=== PATIENT | female | born 1980 | race Caucasian/White ===

== ENCOUNTER 2018-11-05 18:43 | Emergency (ER) | payer MEDICAID ==
[~2018-11-05] VITALS: Ht 157.5 cm; Wt 68.9 kg
[~2018-11-05 18:43] MED LIST: BENA20TA PO; PHEN100C4 PO
[2018-11-05 19:24] VITALS: BP 144/101
[2018-11-05] MEDS ORDERED: MORPHINE SULFATE 4 MG/ML SYR IVP ONE (20:35)
[2018-11-05] MEDS ORDERED: ONDANSETRON 4 MG/2 ML VIAL IVP ONE (20:35)
[2018-11-05] MEDS ORDERED: NACL 0.9% 1,000 ML IV ONE (20:35)
[2018-11-05 20:51] LABS: BASOPHILS % (AUTO) 0.2 % (0.0-2.0); EOSINOPHILS # (AUTO) 0.1 K/uL (0-0.4); EOSINOPHILS % (AUTO) 0.9 % (0.0-4.0); HEMATOCRIT 37.8 % (36-48); HEMOGLOBIN 12.5 g/dL (12.0-16.0); LYMPHOCYTES # (AUTO) 1.7 K/uL (2.5-16.5); LYMPHOCYTES % (AUTO) 13.3 % (20.5-51.1); MEAN CORPUSCULAR HEMOGLOBIN 28 pg (27-31); MEAN CORPUSCULAR HGB CONC 33 g/dL (33-37); MEAN CORPUSCULAR VOLUME 84.7 fL (80-94); MONOCYTES # (AUTO) 0.6 K/uL (0.8-1.0); MONOCYTES % (AUTO) 4.5 % (1.7-9.3); NEUTROPHILS # (AUTO) 10.1 K/uL (1.8-7.7); NEUTROPHILS % (AUTO) 81.1 % (42.2-75.2); PLATELET COUNT (AUTO) 224 K/uL (140-450); RED BLOOD CELL COUNT(AUTO) 4.47 MIL/uL (4.20-5.40); RED CELL DISTRIBUTION WIDTH 14.7 % (11.6-13.7); WHITE BLOOD COUNT (AUTO) 12.5 K/uL (4.8-10.8)
[2018-11-05 21:19] LABS: POTASSIUM 3.7 mmol/L (3.5-5.1)
[2018-11-05 21:20] LABS: ALBUMIN 3.6 g/dL (3.4-5.0); ANION GAP 11.6 (8-16); CARBON DIOXIDE 26.1 mmol/L (21-32); CREATININE 1.2 mg/dL (0.6-1.3); TOTAL BILIRUBIN 0.4 mg/dL (0.0-1.0)
[2018-11-05] MEDS ORDERED: fentaNYL 0.05 MG/ML VIAL IVP ONE (23:00)
[2018-11-06 00:52] LABS: APPEARANCE,URINE CLEAR (CLEAR); BILIRUBIN,URINE NEGATIVE (NEGATIVE); BLOOD, URINE TRACE-I (NEGATIVE); COLOR,URINE YELLOW (YELLOW); LEUKOCYTE ESTERASE ,URINE 1+ (NEGATIVE); NITRITE, URINE NEGATIVE (NEGATIVE); PH,URINE 6.5 (5.0-9.0); UGLUCOSE NEGATIVE (NEGATIVE)
[2018-11-06 00:54] LABS: RBC,URINE 3-10 (FEW) /HPF (0-5); WBC,URINE TOO MANY TO COUNT /HPF (0-5)
[2018-11-06] MEDS ORDERED: MORPHINE SULFATE 4 MG/ML SYR IVP ONE (01:00)
[2018-11-06] MEDS ORDERED: cefTRIAXone 1,000 MG VIAL ONE (01:17)
[2018-11-06 02:50] VITALS: BP 139/74
== END 2018-11-06 02:50 | disposition short-term general hospital (02) ==
LOC: MED 18:43
DX: N13.2 Hydronephrosis with renal and ureteral calculous obstruction (principal); N39.0 Urinary tract infection, site not specified; I10 Essential (primary) hypertension; Z88.6 Allergy status to analgesic agent; Z88.8 Allergy status to other drugs, medicaments and biological substances; Z79.899 Other long term (current) drug therapy
CPT/HCPCS: 36415; 74176; 80053; 81001; 81025; 83690; 85025; 87086; 87186; 96365; 96375; 96376; 99285; J0696; J2270; J2405; J3010; J7030; 99284

== ENCOUNTER 2019-07-26 20:57 | Inpatient (IN) | payer MEDICAID ==
[~2019-07-26] VITALS: Ht 157.5 cm; Wt 67.1 kg
[2019-07-26 21:05] VITALS: BP 124/84
[2019-07-26] MEDS ORDERED: ACETAMINOPHEN EXTRA STRENGTH 500 MG TAB PO ONE (21:15)
[2019-07-26] MEDS ORDERED: IBUPROFEN 400 MG TAB PO ONE (21:15)
--- NOTE | 2019-07-26 21:15 | NUR ---
TO LOBBY A/W BED AMBULATORY
--- NOTE | 2019-07-26 22:07 | NUR ---
PT AMBULATED TO BED 04.
--- NOTE | 2019-07-26 22:10 | NUR ---
38Y FEMALE PRESENTED TO ED C/O RT LOWER BACK PAIN RADIATING TO LOWER ABD X3DAYS. PT WITH FEVER FOR 2 DAYS AND TOOK TYLENOL THIS AM BUT INEFFECTIVE. PT C/O NAUSEA, DENIES VOMITING/DIARRHEA. PT AAOX4, RR EVEN UNLABORED, [facility] 15 EDMD MADE AWARE, WILL CONTINUE TO MONITOR CLOSELY.
[2019-07-26 22:27] LABS: APPEARANCE,URINE CLOUDY (CLEAR); BILIRUBIN,URINE NEGATIVE (NEGATIVE); BLOOD, URINE 2+ (NEGATIVE); COLOR,URINE YELLOW (YELLOW); LEUKOCYTE ESTERASE ,URINE 2+ (NEGATIVE); NITRITE, URINE POSITIVE (NEGATIVE); UGLUCOSE NEGATIVE (NEGATIVE)
[2019-07-26] MEDS ORDERED: NACL 0.9% 2,000 ML IV ONE (22:39)
[2019-07-26] MEDS ORDERED: KETOROLAC 30 MG/ML VIAL IVP ONE (22:40)
[2019-07-26 22:48] LABS: RBC,URINE TOO NUMEROUS TO COUN /HPF (0-5); WBC,URINE TOO MANY TO COUNT /HPF (0-5)
--- NOTE | 2019-07-26 23:00 | NUR ---
PT HAS HX OF SEIZURES
[2019-07-26 23:12] LABS: BASOPHILS % (AUTO) 0.2 % (0.0-2.0); EOSINOPHILS % (AUTO) 0.1 % (0.0-4.0); HEMATOCRIT 33.1 % (36-48); HEMOGLOBIN 11.2 g/dL (12.0-16.0); LYMPHOCYTES # (AUTO) 1.6 K/uL (2.5-16.5); MEAN CORPUSCULAR HEMOGLOBIN 30 pg (27-31); MEAN CORPUSCULAR HGB CONC 34 g/dL (33-37); MEAN CORPUSCULAR VOLUME 87.7 fL (80-94); MONOCYTES # (AUTO) 0.8 K/uL (0.8-1.0); MONOCYTES % (AUTO) 8.4 % (1.7-9.3); NEUTROPHILS # (AUTO) 7.3 K/uL (1.8-7.7); NEUTROPHILS % (AUTO) 75.3 % (42.2-75.2); PLATELET COUNT (AUTO) 172 K/uL (140-450); RED BLOOD CELL COUNT(AUTO) 3.78 MIL/uL (4.20-5.40); RED CELL DISTRIBUTION WIDTH 14.3 % (11.6-13.7); WHITE BLOOD COUNT (AUTO) 9.8 K/uL (4.8-10.8)
[2019-07-26 23:26] LABS: ALBUMIN 3.2 g/dL (3.4-5.0); ANION GAP 10.2 (8-16); CREATININE 0.8 mg/dL (0.6-1.3); POTASSIUM 3.2 mmol/L (3.5-5.1); TOTAL BILIRUBIN 0.9 mg/dL (0.0-1.0)
[2019-07-26] MEDS ORDERED: KETOROLAC 60 MG/2 ML VIAL IM ONE (23:39)
[2019-07-27] MEDS ORDERED: cefTRIAXone 1,000 MG VIAL ONE (00:39)
[2019-07-27] MEDS ORDERED: ACETAMINOPHEN 325 MG TAB PO PRN (03:45)
[2019-07-27] MEDS ORDERED: HYDROcodone/APAP 7.5/325 MG 1 TAB PO PRN (03:45)
[2019-07-27] MEDS ORDERED: ONDANSETRON 4 MG/2 ML VIAL IVP PRN (03:45)
[2019-07-27 04:13] LABS: BARBITURATE, URINE NEG. ng/ml (NEG <=200); BENZODIAZEPINE, URINE NEG. ng/mL (NEG <=200); CANNABINOID, URINE NEG. ng/mL (NEG <=50); COCAINE, URINE NEG. ng/mL (NEG <=300); OPIATE, URINE NEG. ng/mL (NEG <=2000); PHENCYCLIDINE SCREEN,URINE NEG. ng/mL (NEG <=25)
[2019-07-27 04:28] LABS: FREE T4 (FREE THYROXINE) 1.06 ng/dL (0.76-1.46); MAGNESIUM 1.8 mg/dL (1.8-2.4); PHOSPHORUS 2.5 mg/dL (2.5-4.9); THYROID STIMULATING HORMONE 0.71 uIU/mL (0.34-3.74)
[2019-07-27 04:35] VITALS: BP 113/71
--- NOTE | 2019-07-27 04:35 | NUR ---
PT ADMITTED TO [facility] RM [id number]. TRANSFERRED PT VIA JAY ALAN. REPORT GIVEN TO MICHOACANO MAST. PT CARE TRANSFERRED TO RECEIVING RN.
--- NOTE | 2019-07-27 04:35 | NUR ---
RECEIVED REPORT FROM ED RN ALEJANDRO, FOR PT'S CONTINUITY OF CARE. PT IS AAOX4, AMBULATORY, ON ROOM AIR, HAS LEFT WRIST 22G SALINE LOCK, C/O HEADACHE 05/05. VS CHECKED AND CHARTED. EXPLAINED TO PT SETTER OFF ROUTINE, PT VERBALIZED UNDERSTANDING. SEIZURE PRECAUTION IN PLACE. FALL PRECAUTION IN PLACE. WILL MONITOR PT THROUGHOUT SHIFT.
--- NOTE | 2019-07-27 05:08 | NUR ---
PT C/O HEADACHE. REQUESTED FOR PAIN MEDICATION. ADMINISTERED PRN PO PAIN MEDICATION ORDERED. WILL CONTINUE TO MONITOR PT.
--- NOTE | 2019-07-27 06:29 | NUR ---
PT IS LYING DOWN APPEARS TO BE ASLEEP WITH NO SIGNS OF DISTRESS. WILL ENDORSE TO AM SHIFT RN FOR PT'S CONTINUITY OF CARE.
--- NOTE | 2019-07-27 07:30 | NUR ---
RECEIVED BEDSIDE REPORT FROM COMPENSATION AND HRIS ANALYST NURSE FOR CONTINUITY OF CARE. PATIENT IS RESTING ON BED AT THIS TIME. AROUSABLE TO VOICE. PATIENT IS AAOX4. RESPIRATION EVEN AND UNLABORED ON RA. DENIED PAIN, SOB AND DIZZINESS. NO SIGNS OF DISTRESS NOTED. IV ON L WRIST 22G, CLEAN AND INTACT, SALINE LOCK. SKIN CLEAN AND DRY. PATIENT IS CONTINENT AND ABLE TO AMBULATE WITH STANDBY ASSIST. DISCUSSES PLAN OF CARE WITH PATIENT AND PATIENT VERBALIZED UNDERSTANDING. SAFETY MEASURES IN PLACE. FALL RISK PROTOCOL IN PLACE AND SEIZURE PRECAUTION IN PLACE. BOTH SIDE RAILS PADDED AND SIGN POSTED. BED IN LOW POSITION AND CALL LIGHT WITHIN REACH. INSTRUCTED PATIENT TO USE THE CALL LIGHT FOR ANY ASSISTANCE AND PATIENT SAID OK.
[2019-07-27 07:48] LABS: BASOPHILS % (AUTO) 0.2 % (0.0-2.0); EOSINOPHILS # (AUTO) 0.1 K/uL (0-0.4); EOSINOPHILS % (AUTO) 0.8 % (0.0-4.0); HEMATOCRIT 30.5 % (36-48); HEMOGLOBIN 10.4 g/dL (12.0-16.0); LYMPHOCYTES # (AUTO) 1.7 K/uL (2.5-16.5); LYMPHOCYTES % (AUTO) 22.7 % (20.5-51.1); MEAN CORPUSCULAR HEMOGLOBIN 30 pg (27-31); MEAN CORPUSCULAR HGB CONC 34 g/dL (33-37); MEAN CORPUSCULAR VOLUME 88.1 fL (80-94); MONOCYTES # (AUTO) 0.6 K/uL (0.8-1.0); MONOCYTES % (AUTO) 8.6 % (1.7-9.3); NEUTROPHILS % (AUTO) 67.7 % (42.2-75.2); PLATELET COUNT (AUTO) 137 K/uL (140-450); RED BLOOD CELL COUNT(AUTO) 3.46 MIL/uL (4.20-5.40); RED CELL DISTRIBUTION WIDTH 14.4 % (11.6-13.7); WHITE BLOOD COUNT (AUTO) 7.4 K/uL (4.8-10.8)
[2019-07-27 07:59] LABS: ANION GAP 10.6 (8-16); CARBON DIOXIDE 26.8 mmol/L (21-32); CREATININE 0.8 mg/dL (0.6-1.3); POTASSIUM 3.4 mmol/L (3.5-5.1)
[2019-07-27 08:00] VITALS: BP 103/64
[2019-07-27 08:10] LABS: MAGNESIUM 1.8 mg/dL (1.8-2.4); PHOSPHORUS 2.3 mg/dL (2.5-4.9)
--- NOTE | 2019-07-27 08:22 | NUR ---
PATIENT HAS BEEN SCREENED AND CATEGORIZED HIGH NUTRITION RISK. PATIENT WILL BE SEEN WITHIN 1-2 DAYS OF ADMISSION. 07/27/19-07/28/[address]
[2019-07-27 08:23] LABS: PROTHROMBIN TIME 9.9 secs (10.8-13.4)
[2019-07-27] MEDS: DOCUSATE SODIUM 100 MG GELCAP PO SCH ×2 (08:36→21:08)
[2019-07-27] MEDS: NACL 0.9% 1,000 ML IV SCH ×3 (08:36→22:28)
[2019-07-27] MEDS: PHENYTOIN 100 MG CAPER PO SCH ×2 (08:37→21:08)
[2019-07-27] MEDS: BENAZEPRIL 20 MG TAB PO SCH (08:37)
--- NOTE | 2019-07-27 08:37 | NUR ---
ADMINISTERED MEDS PER MD ORDER, PATIENT TOLERATED WELL. MEDS EDUCATION PROVIDED TO PATIENT AND PATIENT VERBALIZED UNDERSTANDING. PATIENT IS AWAKE AND RESTING ON BED AT THIS TIME. DENIED PAIN, SOB AND DIZZINESS. NO SIGNS OF DISTRESS NOTED. TELE MONITOR ATTACHED. SAFETY MEASURES IN PLACE. BED IN LOW POSITION AND CALL LIGHT WITHIN REACH. FALL RISK PROTOCOL IN PLACE AND BED ALARM ACTIVATED. SEIZURE PRECAUTION IN PLACE. INSTRUCTED PATIENT TO USE THE CALL LIGHT FOR ANY ASSISTANCE AND PATIENT SAID OK.
[2019-07-27] MEDS ORDERED: POTASSIUM CHLORIDE 10 MEQ TABER PO SCH (09:00)
--- NOTE | 2019-07-27 09:12 | NUR ---
ADMINISTERED POTASSIUM CHLORIDE 20 MEQ PO, UNABLE TO SCANNED AND TRINI ENTER, EXPLAINED TO PATIENT THAT HER LAB FOR POTASSIUM IS 3.[address] HARPER ORDER THE POTASSIUM CHLORIDE AND PATIENT VERBALIZED UNDERSTANDING. DR HE BY BEDSIDE, TALKING AND ASSESSING PATIENT. NO SIGNS OF DISTRESS NOTED. TELE MONITOR ATTACHED. SAFETY MEASURES IN PLACE. BED IN LOW POSITION AND CALL LIGHT WITHIN REACH. INSTRUCTED PATIENT TO USE THE CALL LIGHT FOR ANY ASSISTANCE AND PATIENT SAID OK.
[2019-07-27] MEDS ORDERED: HYDROcodone/APAP 10/325 MG 1 TAB TAB PO PRN (09:15)
[2019-07-27] MEDS ORDERED: KETOROLAC 30 MG/ML VIAL IM SCH (09:34)
--- NOTE | 2019-07-27 10:06 | NUR ---
ADMINISTERED TORADOL PER MD ORDER FOR MODERATE PAIN CONTROL, PATIENT SAID " THE PAIN IS ON MY LOWER RIGHT BACK HERE. IT'S JUST KEEPING HURTING. LIKE 04/05." MED EDUCATION PROVIDED TO PATIENT AND PATIENT VERBALIZED UNDERSTANDING. PATIENT IS RESTING ON BED AT THIS TIME. SAFETY MEASURES IN PLACE. BED IN LOW POSITION AND CALL LIGHT WITHIN REACH. INSTRUCTED PATIENT TO USE THE CALL LIGHT FOR ANY ASSISTANCE AND PATIENT WAS AWARE.
--- NOTE | 2019-07-27 11:11 | NUR ---
PATIENT IS AWAKE AND RESTING ON BED. PATIENT REQUESTS FOR SOME PADS AND STATES THAT " MY PERIOD IS COMING SOON." PROVIDED REQUESTED. PATIENT DENIED PAIN, SOB AND DIZZINESS AT THIS TIME. NO SIGNS OF DISTRESS NOTED. SAFETY MEASURES IN PLACE. BED IN LOW POSITION AND CALL LIGHT WITHIN REACH. FALL RISK PROTOCOL AND SEIZURE PROTOCOL IN PLACE. INSTRUCTED PATIENT TO USE THE CALL LIGHT FOR ANY ASSISTANCE AND PATIENT SAID OK.
--- NOTE | 2019-07-27 13:14 | NUR ---
PATIENT IS RESTING ON BED AT THIS TIME. AROUSABLE TO VOICE. DENIED PAIN, SOB AND DIZZINESS AT THIS TIME. RESPIRATION EVEN AND UNLABORED ON RA. NO SIGNS OF DISTRESS NOTED. SAFETY MEASURES IN PLACE. BED IN LOW POSITION AND CALL LIGHT WITHIN REACH. INSTRUCTED PATIENT TO USE THE CALL LIGHT FOR ANY ASSISTANCE AND PATIENT WAS AWARE.
--- NOTE | 2019-07-27 15:06 | NUR ---
ADMINISTERED IVF PER MD ORDER, PATIENT IS RESTING ON BED. AROUSABLE TO VOICE. EVEN AND UNLABORED CHEST RISES ON RA NOTED. NO SIGNS OF DISTRESS NOTED. SAFETY MEASURES IN PLACE. FALL RISK PROTOCOL IN PLACE AND BED ALARM ACTIVATED. SEIZURE PRECAUTION IN PLACE. BED IN LOW POSITION AND CALL LIGHT WITHIN REACH.
--- NOTE | 2019-07-27 15:17 | NUR ---
07/27/19 RD INITIAL ASSESSMENT COMPLETED PLEASE REFER TO NUTRITION ASSESSMENT UNDER CARE ACTIVITY FOR ESTIMATED NUTRITIONAL NEEDS. 1. CONTINUE 2GM SODIUM DIET MEDICALLY APPROPRIATE 2. RD TO FOLLOW-UP 2-3 DAYS, HIGH RISK DANIEL CHAUDHARI RD
[2019-07-27 16:00] VITALS: BP 119/73
--- NOTE | 2019-07-27 17:08 | NUR ---
PATIENT IS RESTING ON BED AND REQUESTED FOR ANOTHER WARM BLANKET. PROVIDED. RESPIRATION EVEN AND UNLABORED ON RA. NO SIGNS OF DISTRESS NOTED. SAFETY MEASURES IN PLACE. FALL PROTOCOL IN PLACE AND BED ALARM ACTIVATED. SEIZURE PRECAUTION IN PLACE WITH BOTH SIDE RAILS PADDED. BED IN LOW POSITION AND CALL LIGHT WITHIN REACH. INSTRUCTED PATIENT TO USE THE CALL LIGHT FOR ANY ASSISTANCE AND PATIENT WAS AWARE.
--- NOTE | 2019-07-27 17:51 | NUR ---
PATIENT COMPLAINED THAT SHE FEELS CHILL. CHECKED TEMP ORALLY AND RECEIVED 101.7, ADMINISTERED PRN ACETAMINOPHEN PER MD ORDER, AND APPLIED ICE PACK ON FOREHEAD. WILL REASSESS PATIENT'S TEMP SHORTLY. PATIENT AWAKE AND SITTING UP ON BED AND EATING DINNER. SAFETY MEASURES IN PLACE. BED IN LOW POSITION AND CALL LIGHT WITHIN REACH. INSTRUCTED PATIENT TO USE THE CALL LIGHT FOR ANY ASSISTANCE AND PATIENT WAS AWARE.
[2019-07-27] MEDS: KETOROLAC 30 MG/ML VIAL IM SCH (18:31)
--- NOTE | 2019-07-27 18:31 | NUR ---
ADMINISTERED SCHEDULE TORADOL PER MD ORDER, PATENT TOLERATED WELL. MED EDUCATION PROVIDED TO PATIENT AND PATIENT VERBALIZED UNDERSTANDING. PATIENT IS RESTING ON BED WITH ICE PACK ON FOREHEAD. NO SIGNS OF DISTRESS NOTED. SAFETY MEASURES IN PLACE. BED IN LOW POSITION AND CALL LIGHT WITHIN REACH. INSTRUCTED PATIENT TO USE THE CALL LIGHT FOR ANY ASSISTANCE AND PATIENT WAS AWARE.
--- NOTE | 2019-07-27 18:53 | NUR ---
REASSESSED PATIENT'S BP AND RECEIVED 99.3 ORALLY. PATIENT SAID " I FEEL MUCH BETTER NOW." PATIENT IS TALKING ON THE PHONE. NO SIGNS OF DISTRESS NOTED. SAFETY MEASURES IN PLACE. BED IN LOW POSITION AND CALL LIGHT WITHIN REACH.
--- NOTE | 2019-07-27 19:27 | NUR ---
ENDORSED PATIENT AT BEDSIDE TO PIPEFITTER HELPER NURSE FOR CONTINUITY OF CARE. PATIENT IS AWAKE AND RESTING ON BED AT THIS TIME. NO SIGNS OF DISTRESS NOTED. PATIENT IS IN STABLE CONDITION. SAFETY MEASURES IN PLACE. BED IN LOW POSITION AND CALL LIGHT WITHIN REACH. FALL RISK PROTOCOL IN PLACE AND BED ALARM ACTIVATED.
--- NOTE | 2019-07-27 19:30 | NUR ---
RECEIVED REPORT FROM DAYSHIFT NURSE AT PATIENTS BEDSIDE, PATIENT ANOx4, NO COMPLAINTS AT THIS TIME, WILL FOLLOWUP CARE.
[2019-07-27 20:00] VITALS: BP 104/56
--- NOTE | 2019-07-27 20:00 | NUR ---
PATIENT IN BED RESTING WELL, SITTING UP, ABLE TO MAKE NEEDS KNOWN, FOLLOWS SIMPLE COMMANDS. SKIN IS WARM AND DRY, AFEBRILE 97.6. LUNG SOUNDS CLEAR.PATIENT IS ON ROOM AIR. BREATHING IS EVEN AND UNLABORED. S1S2, HEART RATE 97. LEFT WRIST PERIPHERAL IV 22G, FLUSHED AND ASYMPTOMATIC, INFUSING NS @ 150ML. ABDOMEN SOFT AND NONTENDER, BOWEL SOUNDS ACTIVE. SKIN INTACT, PATIENT IS CONTINENT. ORIENTED TO CALL LIGHT AND TO CALL NURSE FOR ASSISTANCE WITH AMBULATING TO REST ROOM. BED ALARM AND SAFETY MEASURES IN PLACE. CALL LIGHT WITHIN REACH, PATIENT UPDATED ON CARE PLAN. DENIES PAIN AT THIS TIME. WILL CONTINUE TO MONITOR
--- NOTE | 2019-07-27 22:15 | NUR ---
PATIENT REQUESTING KYLE CRACKERS AND ICE WATER. PUT PHONE ON HEARING OFFICER. DENIES PAIN. PATIENT IN STABLE CONDITION. WILL CONTINUE FREQUENT ROUNDS
[2019-07-28] VITALS: BP 107/63
--- NOTE | 2019-07-28 | NUR ---
SCHEDULED TORADOL GIVEN, PATIENT STATES "PAIN IS MODERATE, NOT BAD ITS BEEN". PATIENT ON ROOM AIR, NO COMPLAINTS RESTING WELL IN BED, LEFT LATERAL POSITION. CONTINUE FREQUENT ROUNDS
[2019-07-28] MEDS: KETOROLAC 30 MG/ML VIAL IM SCH ×2 (00:43→06:48)
--- NOTE | 2019-07-28 02:05 | NUR ---
RESTING WELL IN BED, EYES CLOSED, FLACC 0. EQUAL CHEST RISE, ON ROOM AIR, IV FLUIDS INFUSING AT 150ML. NO SIGNS OF DISTRESS.
[2019-07-28 04:00] VITALS: BP 116/75
[2019-07-28] MEDS: NACL 0.9% 1,000 ML IV SCH ×2 (04:10→10:50)
--- NOTE | 2019-07-28 04:18 | NUR ---
PATIENT IN BED, RIGHT LATERAL POSITION, EYES CLOSED, UNLABORED BREATHING, ON ROOM AIR. VSS. WILL CONTINUE FREQUENT ROUNDS
--- NOTE | 2019-07-28 07:15 | NUR ---
RECEIVED REPORT FROM NURSING INFORMATICS ANALYST NURSE KATI. PT IN STABLE CONDITION. RESPIRATIONS EVEN AND UNLABORED. NO IV ACCESS. SAFETY MEASURES IN PLACE. BED IN LOW POSITION. WILL CONTINUE TO MONITOR.
[2019-07-28 07:43] LABS: BASOPHILS % (AUTO) 0.3 % (0.0-2.0); EOSINOPHILS # (AUTO) 0.1 K/uL (0-0.4); EOSINOPHILS % (AUTO) 0.9 % (0.0-4.0); HEMATOCRIT 30.1 % (36-48); HEMOGLOBIN 10.1 g/dL (12.0-16.0); LYMPHOCYTES # (AUTO) 1.5 K/uL (2.5-16.5); LYMPHOCYTES % (AUTO) 23.7 % (20.5-51.1); MEAN CORPUSCULAR HEMOGLOBIN 30 pg (27-31); MEAN CORPUSCULAR HGB CONC 34 g/dL (33-37); MONOCYTES # (AUTO) 0.6 K/uL (0.8-1.0); MONOCYTES % (AUTO) 8.7 % (1.7-9.3); NEUTROPHILS # (AUTO) 4.2 K/uL (1.8-7.7); NEUTROPHILS % (AUTO) 66.4 % (42.2-75.2); PLATELET COUNT (AUTO) 158 K/uL (140-450); RED BLOOD CELL COUNT(AUTO) 3.38 MIL/uL (4.20-5.40); RED CELL DISTRIBUTION WIDTH 14.4 % (11.6-13.7); WHITE BLOOD COUNT (AUTO) 6.4 K/uL (4.8-10.8)
[2019-07-28 08:00] VITALS: BP 125/78
[2019-07-28 08:03] LABS: ANION GAP 12.8 (8-16); CARBON DIOXIDE 22.8 mmol/L (21-32); CREATININE 0.6 mg/dL (0.6-1.3); POTASSIUM 3.6 mmol/L (3.5-5.1)
[2019-07-28 09:58] LABS: MAGNESIUM 1.9 mg/dL (1.8-2.4); PHOSPHORUS 1.9 mg/dL (2.5-4.9)
--- NOTE | 2019-07-28 10:20 | NUR ---
Late entry. Confirmed with RN that Rocephin IV completed at 0110.
[2019-07-28] MEDS: DOCUSATE SODIUM 100 MG GELCAP PO SCH (10:31)
[2019-07-28] MEDS: BENAZEPRIL 20 MG TAB PO SCH (10:31)
[2019-07-28] MEDS: PHENYTOIN 100 MG CAPER PO SCH (10:31)
--- NOTE | 2019-07-28 10:36 | NUR ---
PT SITTING UP IN BED WATCHING TV AT THIS TIME. PT IN STABLE CONDITION. WILL CONTINUE TO MONITOR.
--- NOTE | 2019-07-28 10:44 | NUR ---
PT SIGNED AGAINST MEDICAL ADVICE FORM AT THIS TIME. RESIDENT DR. HARPER IS AWARE. Addendum: 07/28/19 at 1907 by Yeni Dunaway RN PT HAS SPECIAL NEEDS CHILD AT HOME SHE NEEDS TO CARE FOR.
[2019-07-28] MEDS ORDERED: LACT10CA1 PO (10:52)
[2019-07-28] MEDS ORDERED: [UNRECOGNIZED DRUG - CODE] PO (10:52)
[2019-07-28] MEDS ORDERED: MOT200 PO (10:52)
== END 2019-07-28 12:00 | disposition left against medical advice (07) | DRG 720 ==
LOC: MED 20:57 → MTU 07-27 03:48
PROVIDERS: ADMIT General Practice; ATTEND General Practice
DX: A41.9 Sepsis, unspecified organism (principal); E44.0 Moderate protein-calorie malnutrition; E87.1 Hypo-osmolality and hyponatremia; N10 Acute pyelonephritis; G40.909 Epilepsy, unspecified, not intractable, without status epilepticus; I10 Essential (primary) hypertension; E87.6 Hypokalemia; Z53.21 Procedure and treatment not carried out due to patient leaving prior to being seen by health care provider; Z90.49 Acquired absence of other specified parts of digestive tract
CPT/HCPCS: 36415; 80048; 80053; 80185; 80305; 81001; 81025; 82150; 83036; 83605; 83690; 83735; 83880; 84100; 84439; 84443; 85025; 85610; 85730; 87040; 87081; 87086; 87186; 93005; 96365; 96375; 99285; J0696; J1885; J7030

== ENCOUNTER 2022-02-08 21:44 | Emergency (ER) | payer SELFPAY ==
[~2022-02-08] VITALS: Ht 157.5 cm; Wt 74.4 kg
[~2022-02-08 21:44] MED LIST changes: +LACT10CA1 PO; +MOT200 PO; +[UNRECOGNIZED DRUG - CODE] PO
[2022-02-08 21:49] VITALS: BP 171/109
--- NOTE | 2022-02-08 22:00 | NUR ---
C/O high blood pressure x today. Patient checked her BP 190/90 at home. Patient woke up with headache and dizziness. PMHx: Pre-eclampsia (5 Years ago)
--- NOTE | 2022-02-08 22:14 | NUR ---
Patient ambulated to bed 8.
--- NOTE | 2022-02-08 22:26 | NUR ---
Dr. Gimenez at bedside to exam patient.
[2022-02-08] MEDS ORDERED: IBUPROFEN 800 MG TAB PO ONE (22:45)
[2022-02-08] MEDS ORDERED: CLONIDINE HYDROCHLORIDE 0.1 MG TAB PO ONE (22:45)
[2022-02-08] MEDS ORDERED: AMLO-271 PO (23:31)
[2022-02-09 00:15] VITALS: BP 148/90
--- NOTE | 2022-02-09 00:15 | NUR ---
Patient discharged with v/s stable. Written and verbal after care instructions given and explained. Patient verbalized understanding. Ambulatory with steady gait. All questions addressed prior to discharge. Advised to follow up with PMD.
== END 2022-02-09 00:15 | disposition home or self-care (01) ==
LOC: MED 21:44
DX: I10 Essential (primary) hypertension (principal); R11.2 Nausea with vomiting, unspecified; Z86.69 Personal history of other diseases of the nervous system and sense organs; Z79.899 Other long term (current) drug therapy; Z79.1 Long term (current) use of non-steroidal anti-inflammatories (NSAID); Z79.2 Long term (current) use of antibiotics
CPT/HCPCS: 70450; 93005; 99284

== ENCOUNTER 2023-12-22 14:16 | Emergency (ER) | payer SELFPAY ==
[~2023-12-22] VITALS: Ht 157.5 cm; Wt 73.0 kg
[~2023-12-22 14:16] MED LIST changes: +AMLO-271 PO
[2023-12-22 14:44] VITALS: BP 187/99; PULSE 95; RESP 17; TEMP 98.6; O2SAT 98
[2023-12-22 16:48] LABS: CALCIUM 9.7 mg/dL (8.5-10.1); CARBON DIOXIDE 25.8 mmol/L (21-32); CREATININE 0.8 mg/dL (0.6-1.3); POTASSIUM 3.8 mmol/L (3.5-5.1)
[2023-12-22 19:06] VITALS: BP 187/113; PULSE 79
[2023-12-22] MEDS: hydrALAZINE 20 MG/ML VIAL IM ONE (19:06)
[2023-12-22] MEDS: KETOROLAC 30 MG/ML VIAL IM ONE (19:08)
[2023-12-22] MEDS ORDERED: ACET-10509 PO (19:41)
[2023-12-22] MEDS ORDERED: AMLO5TAB PO (19:41)
== END 2023-12-22 19:55 | disposition home or self-care (01) ==
LOC: MED 14:16
DX: R07.89 Other chest pain (principal); I10 Essential (primary) hypertension; R51.9 Headache, unspecified; Z79.899 Other long term (current) drug therapy
CPT/HCPCS: 36415; 71045; 80048; 84484; 96372; 99284; J0360; J1885

== ENCOUNTER 2024-03-14 11:07 | Emergency (ER) | payer SELFPAY ==
[~2024-03-14] VITALS: Ht 157.5 cm; Wt 72.6 kg
[~2024-03-14 11:07] MED LIST changes: +ACET-10509 PO; +AMLO5TAB PO
[2024-03-14 11:18] VITALS: BP 187/95; PULSE 87; RESP 20; TEMP 98.7; O2SAT 97
[2024-03-14] MEDS: ONDANSETRON 4 MG ODT PO ONE (12:35)
[2024-03-14] MEDS: ACETAMINOPHEN EXTRA STRENGTH 500 MG TAB PO ONE (12:36)
[2024-03-14 13:03] LABS: BASOPHILS # (AUTO) 0.1 K/uL (0.00-0.22); BASOPHILS % (AUTO) 0.6 % (0.0-2.0); EOSINOPHILS # (AUTO) 0.3 K/uL (0-0.4); EOSINOPHILS % (AUTO) 2.8 % (0.0-4.0); HEMATOCRIT 35.9 % (36-48); HEMOGLOBIN 12.3 g/dL (12.0-16.0); LYMPHOCYTES # (AUTO) 2.1 K/uL (2.5-16.5); LYMPHOCYTES % (AUTO) 20.8 % (20.5-51.1); MEAN CORPUSCULAR HEMOGLOBIN 27 pg (27-31); MEAN CORPUSCULAR HGB CONC 34 g/dL (33-37); MEAN CORPUSCULAR VOLUME 80.2 fL (80-94); MONOCYTES # (AUTO) 0.4 K/uL (0.8-1.0); MONOCYTES % (AUTO) 4.4 % (1.7-9.3); NEUTROPHILS % (AUTO) 71.4 % (42.2-75.2); PLATELET COUNT (AUTO) 291 K/uL (140-450); RED BLOOD CELL COUNT(AUTO) 4.48 MIL/uL (4.20-5.40); RED CELL DISTRIBUTION WIDTH 15.8 % (11.6-13.7); WHITE BLOOD COUNT (AUTO) 9.9 K/uL (4.8-10.8)
[2024-03-14 13:46] LABS: APPEARANCE,URINE CLEAR (CLEAR); BILIRUBIN,URINE NEGATIVE (NEGATIVE); BLOOD, URINE NEGATIVE (NEGATIVE); COLOR,URINE YELLOW (YELLOW); LEUKOCYTE ESTERASE ,URINE NEGATIVE (NEGATIVE); NITRITE, URINE NEGATIVE (NEGATIVE); PROTEIN,URINE NEGATIVE (NEGATIVE); UGLUCOSE NEGATIVE (NEGATIVE); UROBILINOGEN,URINE 0.2 EU/dL (0.2 - 1)
[2024-03-14 13:51] LABS: ANION GAP 15.6 (8-16); CARBON DIOXIDE 24.2 mmol/L (21-32); CREATININE 0.7 mg/dL (0.6-1.3); POTASSIUM 3.8 mmol/L (3.5-5.1)
[2024-03-14] MEDS ORDERED: ACET-10509 PO (14:15)
[2024-03-14] MEDS ORDERED: AMLO-271 PO (14:28)
== END 2024-03-14 16:29 | disposition home or self-care (01) ==
LOC: MED 11:07
DX: R51.9 Headache, unspecified (principal); R56.9 Unspecified convulsions; R53.1 Weakness; Z79.899 Other long term (current) drug therapy
CPT/HCPCS: 36415; 71045; 80048; 81003; 81025; 84484; 85025; 93005; 99285; Q0162